=== PATIENT | female | born 1985 | race Caucasian/White ===

== ENCOUNTER → 2017-12-20 | Outpatient (CLI) | payer MEDICAID ==
[2017-12-20 17:39] LABS: BASOPHILS # (AUTO) 0.1 X10^3/uL (0.0-0.1); BASOPHILS % (AUTO) 1.8 % (0.2-1.0); EOSINOPHILS # (AUTO) 0.4 x10^3/uL (0.0-0.2); EOSINOPHILS % (AUTO) 6.2 % (0.9-2.9); HEMATOCRIT 31.9 % (36.0-47.0); HEMOGLOBIN 10.2 g/dL (12.0-16.0); LYMPHOCYTES # (AUTO) 1.4 X10^3/uL (1.3-2.9); LYMPHOCYTES % (AUTO) 21.9 % (21.0-51.0); MEAN CORPUSCULAR HEMOGLOBIN 22.7 pg (27.0-34.0); MEAN CORPUSCULAR HGB CONC 31.9 g/dL (33.0-35.0); MEAN CORPUSCULAR VOLUME 71.1 fL (80.0-100.0); MEAN PLATELET VOLUME 8.7 fL (7.4-11.0); MONOCYTES # (AUTO) 0.3 x10^3/uL (0.3-0.8); MONOCYTES % (AUTO) 5.4 % (0.0-13.0); NEUTROPHILS # (AUTO) 4.2 x10^3/uL (2.2-4.8); NEUTROPHILS % (AUTO) 64.7 % (42.0-75.0); PLATELET COUNT 297 X10^3/uL (150.0-450.0); RED BLOOD COUNT 4.49 X10^6/uL (3.5-5.4); RED CELL DISTRIBUTION WIDTH 20.7 % (11.6-16.5); WHITE BLOOD COUNT 6.4 X10^3/uL (3.6-10.0)
[2017-12-20 17:52] LABS: ALANINE AMINOTRANSFERASE 54 Units/L (12-78); ALBUMIN 3.7 g/dL (3.4-5.0); ALKALINE PHOSPHATASE 189 Units/L (46-116); ASPARTATE AMINO TRANSFERASE 17 Units/L (15-37); BLOOD UREA NITROGEN 9 mg/dL (7-18); CALCIUM 9.2 mg/dL (8.5-10.1); CARBON DIOXIDE 28.1 mmol/L (21-32); CHLORIDE 105 mmol/L (98-107); CREATININE 0.64 mg/dL (0.55-1.02); SODIUM 139 mmol/L (136-145); TOTAL PROTEIN 7.9 g/dL (6.4-8.2); eGFR BLACK RACES > 60 (>60); eGFR NON BLACK RACES > 60 (>60)
[2017-12-20 17:53] LABS: HYPOCHROMASIA 1+
[2017-12-20 17:54] LABS: ANISOCYTOSIS 2+; MICROCYTOSIS SLIGHT
[2017-12-20 17:56] LABS: GIANT PLATELET RARE; PLATELET MORPHOLOGY COMMENT ABNORMAL (NORMAL)
[2017-12-20 18:17] LABS: IRON 30 ug/dL (50-175); TOTAL IRON BINDING CAPACITY 445 ug/dL (250-450)
[2017-12-21 13:22] LABS: TSH (3RD GENERATION) 0.614 uIU/mL (0.358-3.74)
[2017-12-24 01:03] LABS: METHYLMALONIC ACID 0.13 umol/L (0.00-0.40)
== END ==
LOC: LAB 17:09
PROVIDERS: ATTEND Nurse Practitioner Family
DX: D53.9 Nutritional anemia, unspecified (principal); R74.8 Abnormal levels of other serum enzymes; G47.19 Other hypersomnia
CPT/HCPCS: 36415; 80053; 82607; 82728; 82746; 83540; 83550; 83918; 84080; 84443; 85025

== ENCOUNTER → 2018-01-04 | Outpatient (CLI) | payer MEDICAID ==
--- NOTE | 2018-01-04 12:09 | US ---
HISTORY: Abdominal pain and abnormal LFTs. Study: Right upper quadrant abdominal ultrasound Comparison: None. Technique: Multiple rodriguez scale and color flow Doppler images of the right upper quadrant were obtaine d. Findings: The liver is normal in echotexture and size. No focal intraparenchymal mass or intrahepatic biliary ductal dilatation can be observed. The gallbladder fails to demonstrate evidence for cholelithiasis or layering sludge. The common bile duct is unremarkable measuring 3 mm. No pericholecystic fluid o r gallbladder wall thickening can be observed. The CBD measures within normal limits. There is approp riate flow seen within the portal vein, hepatic artery, hepatic veins. The right kidney appears rupinder l in size without focal parenchymal mass or nephrolithiasis. The right kidney measurers within rupinder l limits. No hydronephrosis or perirenal fluid can be observed. The pancreatic head and body are un remarkable. The pancreatic tail is largely obscured by overlying bowel gas. No ascites or fluid sameer ection is seen. IMPRESSION: 1. Unremarkable examination of the right upper quadrant. Reported By:
== END ==
LOC: RAD 10:19
PROVIDERS: ATTEND Nurse Practitioner Family
DX: R74.8 Abnormal levels of other serum enzymes (principal)
CPT/HCPCS: 76705